=== PATIENT | female | born 1980 | race Caucasian/White ===

== ENCOUNTER → 2016-03-23 | Day surgery (SDC) | payer OTHER | LOC: RAD 13:31 | PROVIDERS: ATTEND Orthopaedic Surgery | PROC: BP0 Imaging, Non-Axial Upper Bones, Plain Radiography (ICD-10-PCS; principal; 2016-03-23) | DX: M25.511 Pain in right shoulder (principal) | CPT/HCPCS: 73222; 73040; 77002; A9576 ==

== ENCOUNTER 2016-09-12 15:12 | Emergency (ER) | payer OTHER ==
[2016-09-12 15:19] VITALS: BP 139/90
[2016-09-12] MEDS ORDERED: MAG HYDROX/AL HYDROX/SIMETH SUSP 30 ML UDCUP PO ONE (15:36)
[2016-09-12] MEDS ORDERED: DIPHENHYDRAMINE HCL 25 MG/10 ML UDC PO ONE (15:36)
[2016-09-12] MEDS ORDERED: LIDOCAINE 2% VISCOUS SOLN 20 ML UDCUP PO ONE (15:36)
--- NOTE | 2016-09-12 15:42 | ER Document Report ---
ED ENT - General Chief Complaint: Sore Throat Stated Complaint: SORE THROAT Time Seen by Provider: 09/12/16 15:29 Notes: 35 yo female c/o throat pain x 3 days. says pain started after eating fried shrimp. felt like something sharp got stuck in throat. cleared throat with water, but throat has been hurting ever since. hurts to swallow, hurts to talk. now has developed a productive cough with green sputum. no fever. TRAVEL OUTSIDE OF THE [place] IN LAST 30 DAYS: No - HPI Onset/Duration: Sudden Quality of pain: Sharp, Stabbing Location of pain: Throat Associated symptoms: Cough. denies: Fever, Stiff neck Similar symptoms previously: No Recently seen / treated by doctor: No - Related Data Allergies/Adverse Reactions: No Known Allergies Allergy (Unverified 09/12/16 15:16) Past Medical History - Social History Smoking Status: Never Smoker Frequency of alcohol use: None Drug Abuse: None Lives with: Family Family History: Reviewed & Not Pertinent - Medical History Medical History: Negative Renal/ Medical History: Denies: Hx Peritoneal Dialysis Past Surgical History: Reports: Hx Section - x1 - Immunizations Hx Diphtheria, Pertussis, Tetanus Vaccination: - unsure Review of Systems - Review of Systems Constitutional: No symptoms reported Cardiovascular: No symptoms reported Respiratory: No symptoms reported Gastrointestinal: No symptoms reported Genitourinary: No symptoms reported Female Genitourinary: No symptoms reported Musculoskeletal: No symptoms reported Skin: No symptoms reported Hematologic/Lymphatic: No symptoms reported Neurological/Psychological: No symptoms reported Physical Exam - Vital signs Vitals: Temp Pulse Resp BP Pulse Ox 98.6 F 94 16 139/90 H 99 09/12/16 15:17 09/12/16 15:17 09/12/16 15:17 09/12/16 15:17 09/12/16 15:17 Interpretation: Normal - General General appearance: Appears well, Alert - HEENT Head: Normocephalic, Atraumatic Eyes: Normal Conjunctiva: Normal Pupils: PERRL Tympanic membrane: Normal Mucous membranes: Moist Pharynx: Erythema. No: Tonsillar hypertrophy, Uvular edema, Potential airway comprom. Neck: Normal, Supple - Respiratory Respiratory status: No respiratory distress Chest status: Nontender Breath sounds: Normal Chest palpation: Normal - Cardiovascular Rhythm: Regular Heart sounds: Normal auscultation Murmur: No - Abdominal Inspection: Normal Distension: No distension Bowel sounds: Normal Tenderness: Nontender Organomegaly: No organomegaly - Back Back: Normal, Nontender - Extremities General upper extremity: Normal inspection, Nontender, Normal color, Normal ROM , Normal temperature General lower extremity: Normal inspection, Nontender, Normal color, Normal ROM , Normal temperature, Normal weight bearing. No: Amanuel's sign - Neurological Neuro grossly intact: Yes Cognition: Normal Orientation: AAOx4 [place] Coma Scale Eye Opening: Spontaneous [place] Coma Scale Verbal: Oriented [place] Coma Scale Motor: Obeys Commands [place] Coma Scale Total: 15 Speech: Normal Motor strength normal: LUE, RUE, LLE, RLE Sensory: Normal - Psychological Associated symptoms: Normal affect, Normal mood - Skin Skin Temperature: Warm Skin Moisture: Dry Skin Color: Normal Course - Re-evaluation Re-evalutation: 09/12/16 15:44 low suspicion for kev's, peritonsillar abscess. no airway compromise. 09/12/16 16:15 soft tissue neck normal. results reviewed with patient. pt is stable for discharge and follow up with primary care if symptoms persist - Vital Signs Vital signs: Temp Pulse Resp BP Pulse Ox 98.6 F 94 16 139/90 H 99 09/12/16 15:17 09/12/16 15:17 09/12/16 15:17 09/12/16 15:17 09/12/16 15:17 Discharge - Discharge Clinical Impression: Sore throat Instructions: Steroid Medication Additional Instructions: medications as prescribed salt water gargles for comfort follow up primary care if symptoms persist Prescriptions: Nystatin/Dexameth/Diphen [Magic Mouthwash (Omh Formula) Susp] 5 ml PO QID #120 ml Prednisone [Deltasone 20 mg Tablet] 2 tab PO BID #16 tablet
--- NOTE | 2016-09-12 16:08 | RADIOLOGY REPORT (SQ) ---
EXAM DESCRIPTION: CHEST PA/LAT COMPLETED DATE/TIME: 09/12/2016 3:56 pm REASON FOR STUDY: cough COMPARISON: 11/02/2010. EXAM PARAMETERS: NUMBER OF VIEWS: two views TECHNIQUE: Digital Frontal and Lateral radiographic views of the chest acquired. RADIATION DOSE: NA LIMITATIONS: none FINDINGS: LUNGS AND PLEURA: No opacities, masses or pneumothorax. No pleural effusion. MEDIASTINUM AND HILAR STRUCTURES: No masses or contour abnormalities. HEART AND VASCULAR STRUCTURES: Heart normal size. No evidence for failure. BONES: No acute findings. HARDWARE: None in the chest. OTHER: No other significant finding. IMPRESSION: NO SIGNIFICANT RADIOGRAPHIC FINDING IN THE CHEST. TECHNICAL DOCUMENTATION: JOB ID: [id number] [employer]- All Rights Reserved
--- NOTE | 2016-09-12 16:09 | RADIOLOGY REPORT (SQ) ---
EXAM DESCRIPTION: SOFT TISSUE NECK COMPLETED DATE/TIME: 09/12/2016 3:56 pm REASON FOR STUDY: cough COMPARISON: None. NUMBER OF VIEWS: Two views. TECHNIQUE: AP and lateral radiographic image of the soft tissues of the neck. LIMITATIONS: None. FINDINGS: EPIGLOTTIS: Normal. Contour normal. Aryepiglottic folds normal. PREVERTEBRAL SOFT TISSUES: Normal. No soft tissue swelling. SUBGLOTTIC AREA: Normal. No narrowing. RETROPHARYNGEAL SPACE: Normal. No soft tissue masses. BONY STRUCTURES: No significant findings. LUNG APICES: Normal. OTHER: No radiopaque foreign body. No other significant finding. IMPRESSION: NEGATIVE STUDY OF THE SOFT TISSUES OF THE NECK. TECHNICAL DOCUMENTATION: JOB ID: [id number] [employer]- All Rights Reserved
== END 2016-09-12 16:24 | disposition home or self-care (01) ==
LOC: ER 15:12
DX: J02.9 Acute pharyngitis, unspecified (principal); R05 Cough
CPT/HCPCS: 99283; 71020; 70360; J3490 ×2

== ENCOUNTER 2017-04-01 04:34 | Emergency (ER) | payer OTHER ==
[2017-04-01 04:44] VITALS: BP 130/83
[2017-04-01] MEDS ORDERED: FENTANYL CITRATE INJ/PF 100 MCG/2 ML AMPUL IV ONE (05:08)
[2017-04-01] MEDS ORDERED: ONDANSETRON HCL INJ/PF 4 MG/2 ML SDV IV ONE (05:08)
[2017-04-01] MEDS ORDERED: KETOROLAC TROMETHAMINE INJ/PF 30 MG/1 ML SDV IV ONE (05:08)
--- NOTE | 2017-04-01 05:11 | ER Document Report ---
ED Medical Screen (RME) - General Chief Complaint: Abdominal Pain Stated Complaint: ABDOMINAL PAIN Time Seen by Provider: 04/01/17 05:03 Notes: 36-year-old female, chief complaint of sudden onset of severe pain radiating from her right mid to lower abdomen around to her back. She states she is nauseated but she has not vomited. She denies vaginal bleeding, dysuria, vaginal discharge, fever. No history of kidney stones. Only past medical history reported is , ADHD, depression. TRAVEL OUTSIDE OF THE [place] IN LAST 30 DAYS: No - Related Data Allergies/Adverse Reactions: No Known Allergies Allergy (Unverified 09/12/16 15:16) Past Medical History - Social History Chew tobacco use (# tins/day): No Frequency of alcohol use: None Renal/ Medical History: Denies: Hx Peritoneal Dialysis Past Surgical History: Reports: Hx Section - x1 - Immunizations Hx Diphtheria, Pertussis, Tetanus Vaccination: - unsure Physical Exam - Vital signs Vitals: Temp Pulse Resp BP Pulse Ox 97.4 F 82 20 130/83 H 100 04/01/17 04:43 04/01/17 04:43 04/01/17 04:43 04/01/17 04:43 04/01/17 04:43 - General General appearance: Anxious In distress: Moderate - Patient holding her stomach, curled up in a ball, appears to be in obvious pain - Abdominal Tenderness: Tender - Tender in the mid to lower right abdomen generally, remaining abdomen benign Course - Vital Signs Vital signs: Temp Pulse Resp BP Pulse Ox 97.4 F 82 20 130/83 H 100 04/01/17 04:43 04/01/17 04:43 04/01/17 04:43 04/01/17 04:43 04/01/17 04:43
[2017-04-01 05:34] LABS: ABSOLUTE BASOPHILS # (AUTO) 0.2 10^3/uL (0.0-0.2); ABSOLUTE EOSINOPHILS # (AUTO) 0.1 10^3/uL (0.0-0.6); ABSOLUTE LYMPHOCYTES (AUTO) 2.4 10^3/uL (0.5-4.7); ABSOLUTE MONOCYTES (AUTO) 0.7 10^3/uL (0.1-1.4); ABSOLUTE NEUT (AUTO) 7.6 10^3/uL (1.7-8.2); BASOPHILS % (AUTO) 1.5 % (0-2); HEMATOCRIT 37.6 % (36.0-47.0); HEMOGLOBIN 13.1 g/dL (12.0-15.5); LYMPHOCYTES % (AUTO) 21.7 % (13-45); MEAN CORPUSCULAR HEMOGLOBIN 28.7 pg (27.0-33.4); MEAN CORPUSCULAR HGB CONC 34.7 g/dL (32.0-36.0); MEAN CORPUSCULAR VOLUME 83 fl (80-97); MONOCYTES % (AUTO) 6.1 % (3-13); PLATELET COUNT 490 10^3/uL (150-450); RED BLOOD COUNT 4.56 10^6/uL (3.72-5.28); RED CELL DISTRIBUTION WIDTH 13.3 % (11.5-14.0); SEGMENTED NEUTROPHILS % (AUTO) 69.7 % (42-78); TOTAL CELLS COUNTED % (AUTO) 100 %; WHITE BLOOD COUNT 10.9 10^3/uL (4.0-10.5)
[2017-04-01 06:09] LABS: ALANINE AMINOTRANSFERASE 26 U/L (9-52); ALBUMIN 4.1 g/dL (3.5-5.0); ALKALINE PHOSPHATASE 90 U/L (38-126); ANION GAP 11 (5-19); ASPARTATE AMINO TRANSFERASE 17 U/L (14-36); BILIRUBIN,DIRECT 0.3 mg/dL (0.0-0.4); BILIRUBIN,TOTAL 0.5 mg/dL (0.2-1.3); BLOOD UREA NITROGEN 14 mg/dL (7-20); CALCIUM 10.2 mg/dL (8.4-10.2); CARBON DIOXIDE 21 mmol/L (22-30); CHLORIDE 107 mmol/L (98-107); GLUCOSE 116 mg/dL (75-110); SODIUM 139.1 mmol/L (137-145)
--- NOTE | 2017-04-01 06:25 | ER Document Report ---
ED General - General Chief Complaint: Abdominal Pain Stated Complaint: ABDOMINAL PAIN Time Seen by Provider: 04/01/17 05:03 Mode of Arrival: Ambulatory Information source: Patient Notes: 36 yr old female presents with complaints of bilateral lower abd pain that started suddenly last night . Patient denies any fevers or chills admits nausea without any vomiting. Denies any vaginal bleeding discharge TRAVEL OUTSIDE OF THE [place] IN LAST 30 DAYS: No - HPI Onset: Just prior to arrival Onset/Duration: Sudden Quality of pain: Cramping Severity: Mild Pain Level: 1 Associated symptoms: Nausea Exacerbated by: Denies Relieved by: Denies Similar symptoms previously: No Recently seen / treated by doctor: No - Related Data Allergies/Adverse Reactions: No Known Allergies Allergy (Unverified 09/12/16 15:16) Past Medical History - Social History Smoking Status: Never Smoker Cigarette use (# per day): No Chew tobacco use (# tins/day): No Smoking Education Provided: No Frequency of alcohol use: None Family History: Reviewed & Not Pertinent Patient has suicidal ideation: No Patient has homicidal ideation: No Renal/ Medical History: Denies: Hx Peritoneal Dialysis Past Surgical History: Reports: Hx Section - x1, Hx Orthopedic Surgery - Immunizations Hx Diphtheria, Pertussis, Tetanus Vaccination: - unsure Review of Systems - Review of Systems Notes: REVIEW OF SYSTEMS: CONSTITUTIONAL : Denies fever, chills, or sweats. Denies recent illness. EENT: Denies eye, ear, throat, or mouth pain or symptoms. Denies nasal or sinus congestion or discharge. Denies throat, tongue, or mouth swelling or difficulty swallowing. CARDIOVASCULAR: Denies chest pain. Denies palpitations or racing or irregular heart beat. Denies ankle edema. RESPIRATORY: Denies cough, cold, or chest congestion. Denies shortness of breath, difficulty breathing, or wheezing. GASTROINTESTINAL: Admits to abdominal pain GENITOURINARY: Denies difficulty urinating, painful urination, burning, frequency, blood in urine, or discharge. FEMALE GENITOURINARY: Denies vaginal bleeding, heavy or abnormal periods, irregular periods. Denies vaginal discharge or odor. MUSCULOSKELETAL: Denies back or neck pain or stiffness. Denies joint pain or swelling. SKIN: Denies rash, lesions or sores. HEMATOLOGIC : Denies easy bruising or bleeding. LYMPHATIC: Denies swollen, enlarged glands. NEUROLOGICAL: Denies confusion or altered mental status. Denies passing out or loss of consciousness. Denies dizziness or lightheadedness. Denies headache. Denies weakness or paralysis or loss of use of either side. Denies problems with gait or speech. Denies sensory loss, numbness, or tingling. Denies seizures. PSYCHIATRIC: Denies anxiety or stress. Denies depression, suicidal ideation, or homicidal ideation. ALL OTHER SYSTEMS REVIEWED AND NEGATIVE. PHYSICAL EXAMINATION: GENERAL: Well-appearing, well-nourished and in no acute distress. HEAD: Atraumatic, normocephalic. EYES: Pupils equal round and reactive to light, extraocular movements intact, conjunctiva are normal. ENT: Nares patent, oropharynx clear without exudates. Moist mucous membranes. NECK: Normal range of motion, supple without lymphadenopathy LUNGS: Breath sounds clear to auscultation bilaterally and equal. No wheezes rales or rhonchi. HEART: Regular rate and rhythm without murmurs ABDOMEN: Soft, nontender, nondistended abdomen. No guarding, no rebound. No masses appreciated. Female : deferred Musculoskeletal: Normal range of motion, no pitting or edema. No cyanosis. NEUROLOGICAL: Cranial nerves grossly intact. Normal speech, normal gait. Normal sensory, motor exams PSYCH: Normal mood, normal affect. SKIN: Warm, Dry, normal turgor, no rashes or lesions noted. Dictation was performed using [employer] voice recognition software Physical Exam - Vital signs Vitals: Temp Pulse Resp BP Pulse Ox 97.4 F 82 20 130/83 H 100 04/01/17 04:43 04/01/17 04:43 04/01/17 04:43 04/01/17 04:43 04/01/17 04:43 Course - Re-evaluation Re-evalutation: 04/01/17 07:20 Patient's examination was quite benign, she notes her pain is improved significantly, she is in no distress at this time, I did evaluate her with a CT which noted no acute abnormality either. I believe this may be more intestinal as a cramping seems to move around Overall I believe she is stable for discharge as she is in no distress looks well is afebrile After performing a Medical Screening Examination, I estimate there is LOW risk for ACUTE APPENDICITIS, BOWEL OBSTRUCTION, ACUTE CHOLECYSTITIS, PERFORATED DIVERTICULITIS, INCARCERATED HERNIA, PANCREATITIS, PELVIC INFLAMMATORY DISEASE, PERFORATED ULCER, ECTOPIC , or TUBO-OVARIAN ABSCESS, thus I consider the discharge disposition reasonable. Also, there is no evidence or peritonitis , sepsis, or toxicity. I have reevaluated this patient multiple times and no significant life threatening changes are noted. The patient and I have discussed the diagnosis and risks, and we agree with discharging home with close follow-up with the understanding that symptoms and presentations can change. We also discussed returning to the Emergency Department immediately if new or worsening symptoms occur. We have discussed the symptoms which are most concerning (e.g., bloody stool, fever, changing or worsening pain, vomiting) that necessitate immediate return. - Vital Signs Vital signs: Temp Pulse Resp BP Pulse Ox 97.4 F 82 20 130/83 H 100 04/01/17 04:43 04/01/17 04:43 04/01/17 04:43 04/01/17 04:43 04/01/17 04:43 - Laboratory Result Diagrams: 04/01/17 05:25 04/01/17 05:25 Laboratory results interpreted by me: 04/01/17 04/01/17 04/01/17 05:25 05:25 06:14 WBC 10.9 H Plt Count 490 H Carbon Dioxide 21 L Glucose 116 H Urine Ketones TRACE H Ur Leukocyte Esterase SMALL H - Diagnostic Test Radiology reviewed: Image reviewed, Reports reviewed - No acute abnormality Discharge - Discharge Clinical Impression: Abdominal cramping Condition: Stable Disposition: HOME, SELF-CARE Instructions: Abdominal Pain ([facility]), Observation for Appendicitis ([facility]) Additional Instructions: Follow up with your physician tomorrow for further care or return to the ED IMMEDIATELY if symptoms worsen or new concerns occur. If you cannot afford to follow up with your primary care physician a list of low cost clinics have been provided at the end of your discharge papers as well. Prescriptions: Dicyclomine HCl [Bentyl 20 mg Tablet] 20 mg PO QID #40 tablet Hydrocodone/Acetaminophen [Kennan 5-325 mg Tablet] 1 tab PO Q6 #10 tablet Ondansetron HCl [Zofran 4 mg Tablet] 1 - 2 tab PO Q4H PRN #10 tablet PRN Reason: Referrals: MAYNOR HO MD [ACTIVE STAFF] - Follow up tomorrow
[2017-04-01 06:34] LABS: APPEARANCE,URINE SLIGHTLY-CLOUDY; BILIRUBIN,URINE NEGATIVE (NEGATIVE); COLOR,URINE YELLOW; GLUCOSE, URINE NEGATIVE (NEGATIVE); KETONES,URINE TRACE mg/dL (NEGATIVE); LEUKOCYTE ESTERASE,URINE SMALL (NEGATIVE); NITRITE,URINE NEGATIVE (NEGATIVE); PROTEIN,URINE NEGATIVE (NEGATIVE); URINE SPECIFIC GRAVITY 1.028; UROBILINOGEN,URINE NEGATIVE mg/dL (<2.0)
--- NOTE | 2017-04-01 07:12 | RADIOLOGY REPORT (SQ) ---
EXAM DESCRIPTION: CT ABDOMEN AND PELVIS WITHOUT CONTRAST CLINICAL HISTORY: right abd pain, right flank pain, nausea COMPARISON: None Available. TECHNIQUE: CT of the abdomen and pelvis without IV contrast. FINDINGS: Abdomen: The liver has normal size and density. No calcified gallstones. The spleen, pancreas, and adrenal glands are unremarkable. The kidneys have normal size and contour without evidence of hydronephrosis. No obstructing ureteral calculi. The aorta and IVC have normal caliber and position. No free intraperitoneal air. The stomach and duodenum have normal course. Pelvis: Uterus is not enlarged. Urinary bladder is unremarkable. No free pelvic fluid or lymphadenopathy. No dilated loops of large or small bowel. The appendix is not definitely visualized however no right lower quadrant inflammatory change. The visualized lung bases are clear. No destructive bone lesions identified. DLP: 698.22 mGy-cm IMPRESSION: 1. No acute inflammatory or obstructive abnormality identified. This exam was performed according to our departmental dose-optimization program, which includes automated exposure control, adjustment of the mA and/or kV according to patient size and/or use of iterative reconstruction technique.
[2017-04-01] MEDS ORDERED: DICYCLOMINE HCL INJ 20 MG/2 ML AMPULE IM ONE (07:27)
== END 2017-04-01 08:00 | disposition home or self-care (01) ==
LOC: ER 04:34
DX: R10.30 Lower abdominal pain, unspecified (principal)
CPT/HCPCS: 99284; 96372; 96374; 96375; 36415; 84703; 85025; 80053; 81001; 76380; J0500; J3010; J1885; J2405

== ENCOUNTER 2017-05-22 04:38 | Observation (INO) | payer OTHER ==
[2017-05-22] MEDS ORDERED: PROMETHAZINE HCL 25 MG TABLET PO ONE (05:14)
--- NOTE | 2017-05-22 05:15 | ER Document Report ---
ED Medical Screen (RME) - General Chief Complaint: Abdominal Pain Stated Complaint: ABDOMINAL PAIN Notes: 36-year-old female, chief complaint of abdominal pain and flank pain, she states it woke her out of sleep tonight. She states pain is on both sides of her abdomen, upper and lower. She states she vomited once. She took Zofran, Menno, ibuprofen. She states she vomited after taking Zofran. She denies fever , vaginal bleeding or discharge, she states she is not sexually active, only surgery is . Past medical history of PTSD and TBI. TRAVEL OUTSIDE OF THE [place] IN LAST 30 DAYS: No - Related Data Allergies/Adverse Reactions: No Known Allergies Allergy (Unverified 09/12/16 15:16) Past Medical History - Social History Chew tobacco use (# tins/day): No Frequency of alcohol use: None Drug Abuse: None Renal/ Medical History: Denies: Hx Peritoneal Dialysis Past Surgical History: Reports: Hx Section - x1, Hx Orthopedic Surgery - Immunizations Hx Diphtheria, Pertussis, Tetanus Vaccination: - unsure Physical Exam - Vital signs Vitals: Temp Pulse Resp BP Pulse Ox 97.5 F 61 20 126/80 H 100 05/22/17 04:45 05/22/17 04:45 05/22/17 04:45 05/22/17 04:45 05/22/17 04:45 - Abdominal Tenderness: Tender - No focal tenderness, patient complains of pain regardless of where I palpate, no obvious guarding, no rigidity, no rebound tenderness Course - Vital Signs Vital signs: Temp Pulse Resp BP Pulse Ox 97.5 F 61 20 126/80 H 100 05/22/17 04:45 05/22/17 04:45 05/22/17 04:45 05/22/17 04:45 05/22/17 04:45 Doctor's Discharge - Discharge Referrals: HERNÁN CAIN MD [Primary Care Provider] - Follow up as needed
[2017-05-22] MEDS ORDERED: NORMAL SALINE 1000 ML 1,000 ML IV ONE ×2 (05:53→13:50)
[2017-05-22] MEDS ORDERED: KETOROLAC TROMETHAMINE INJ/PF 30 MG/1 ML SDV IV ONE (05:53)
[2017-05-22 05:57] LABS: ABSOLUTE BASOPHILS # (AUTO) 0.1 10^3/uL (0.0-0.2); ABSOLUTE LYMPHOCYTES (AUTO) 1.4 10^3/uL (0.5-4.7); ABSOLUTE MONOCYTES (AUTO) 0.4 10^3/uL (0.1-1.4); ABSOLUTE NEUT (AUTO) 10.9 10^3/uL (1.7-8.2); BASOPHILS % (AUTO) 0.7 % (0-2); EOSINOPHILS % (AUTO) 0.2 % (0-6); HEMATOCRIT 39.9 % (36.0-47.0); HEMOGLOBIN 13.5 g/dL (12.0-15.5); LYMPHOCYTES % (AUTO) 11.3 % (13-45); MEAN CORPUSCULAR HGB CONC 33.8 g/dL (32.0-36.0); MEAN CORPUSCULAR VOLUME 83 fl (80-97); MONOCYTES % (AUTO) 2.9 % (3-13); PLATELET COUNT 451 10^3/uL (150-450); RED BLOOD COUNT 4.81 10^6/uL (3.72-5.28); SEGMENTED NEUTROPHILS % (AUTO) 84.9 % (42-78); TOTAL CELLS COUNTED % (AUTO) 100 %; WHITE BLOOD COUNT 12.9 10^3/uL (4.0-10.5)
--- NOTE | 2017-05-22 05:59 | ER Document Report ---
ED General - General Chief Complaint: Abdominal Pain Stated Complaint: ABDOMINAL PAIN Time Seen by Provider: 05/22/17 05:46 Notes: Patient presents with abdominal pain lower bilateral onset in her back which radiated around to the front for the past 12 hours associated with nausea and vomiting. She has a history of this once before 2 months ago was evaluated in the ED with no clear diagnosis and was discharged with dicyclomine hydrocodone and Zofran which she has been taking again over the past 12 hours secondary return of pain. No fevers chills no vaginal discharge not sexually active last menstrual period, which is regular, was a month ago. She is cared for primarily at the NH. No history of abdominal surgeries. TRAVEL OUTSIDE OF THE [place] IN LAST 30 DAYS: No - Related Data Allergies/Adverse Reactions: No Known Allergies Allergy (Unverified 09/12/16 15:16) Past Medical History - Social History Smoking Status: Never Smoker Chew tobacco use (# tins/day): No Frequency of alcohol use: None Drug Abuse: None Family History: Reviewed & Not Pertinent Patient has suicidal ideation: No Patient has homicidal ideation: No Renal/ Medical History: Denies: Hx Peritoneal Dialysis Past Surgical History: Reports: Hx Section - x1, Hx Orthopedic Surgery - Immunizations Hx Diphtheria, Pertussis, Tetanus Vaccination: - unsure Physical Exam - Vital signs Vitals: Temp Pulse Resp BP Pulse Ox 97.5 F 61 20 126/80 H 100 05/22/17 04:45 05/22/17 04:45 05/22/17 04:45 05/22/17 04:45 05/22/17 04:45 Course - Re-evaluation Re-evalutation: 05/22/17 06:29 Patient presents with repeat episode of nonspecific abdominal pain radiating around her back. She was evaluated 2 months ago for similar pain in her CT was negative as well as the rest of her workup. Today she has tenderness throughout the lower abdomen. She is afebrile. I think that this is probably some some form of functional abdominal pain, she has no risk factors for obstruction, no discharge to suggest pelvic inflammatory disease, and the pain is not localized to either lower quadrant making me less suspicious for appendicitis or diverticulitis. She appears in significant pain, however so she will be treated with non-narcotic medications, antiemetics, IV fluids and I will redo her CT scan today. Lack of right upper quadrant pain or tenderness makes her low risk for gallbladder process so I do not think she needs an ultrasound. She is quite repeatedly asking for pain medication. She was given Toradol. 05/22/17 09:13 He shows possible distal ileal obstruction. Lots of stool. Ovarian cyst noted. This is probably a result of constipation but given the radiology read I will consult surgery and I spoke with Dr. Toney who will admit the patient. 05/22/17 13:50 Ultrasound shows gallbladder sludge and stones. Patient has right upper quadrant tenderness which persists. Spoke with Dr. Garduno who will admit for possible early cholecystitis. - Vital Signs Vital signs: Temp Pulse Resp BP Pulse Ox 97.5 F 61 20 126/80 H 100 05/22/17 04:45 05/22/17 04:45 05/22/17 04:45 05/22/17 04:45 05/22/17 04:45 - Laboratory Result Diagrams: 05/22/17 05:50 05/22/17 05:50 Laboratory results interpreted by me: 05/22/17 05/22/17 05/22/17 05:50 05:50 07:28 WBC 12.9 H Plt Count 451 H Seg Neutrophils % 84.9 H Lymphocytes % 11.3 L Monocytes % 2.9 L Absolute Neutrophils 10.9 H Glucose 133 H Urine Ketones 80 H - Diagnostic Test Radiology reviewed: Image reviewed, Reports reviewed Discharge - Discharge Clinical Impression: Cholelithiasis Qualifiers: Cholelithiasis location: gallbladder Cholecystitis presence: without cholecystitis Biliary obstruction: without biliary obstruction Qualified Code(s) : K80.20 - Calculus of gallbladder without cholecystitis without obstruction Condition: Fair Disposition: ADMITTED INPATIENT Admitting Provider: Surgicalist Unit Admitted: Surgical Floor Referrals: HERNÁN CAIN MD [Primary Care Provider] - Follow up as needed
[2017-05-22 06:09] LABS: ALANINE AMINOTRANSFERASE 33 U/L (9-52); ALBUMIN 4.7 g/dL (3.5-5.0); ALKALINE PHOSPHATASE 94 U/L (38-126); ANION GAP 13 (5-19); ASPARTATE AMINO TRANSFERASE 19 U/L (14-36); BILIRUBIN,DIRECT 0.1 mg/dL (0.0-0.4); BILIRUBIN,TOTAL 0.4 mg/dL (0.2-1.3); BLOOD UREA NITROGEN 16 mg/dL (7-20); CARBON DIOXIDE 25 mmol/L (22-30); CHLORIDE 103 mmol/L (98-107); GLUCOSE 133 mg/dL (75-110); LIPASE 40.2 U/L (23-300); POTASSIUM 4.4 mmol/L (3.6-5.0); SODIUM 141.1 mmol/L (137-145); TOTAL PROTEIN 7.3 g/dL (6.3-8.2)
[2017-05-22 07:59] LABS: APPEARANCE,URINE SLIGHTLY-CLOUDY; BILIRUBIN,URINE NEGATIVE (NEGATIVE); COLOR,URINE YELLOW; GLUCOSE, URINE NEGATIVE (NEGATIVE); KETONES,URINE 80 mg/dL (NEGATIVE); LEUKOCYTE ESTERASE,URINE NEGATIVE (NEGATIVE); NITRITE,URINE NEGATIVE (NEGATIVE); PROTEIN,URINE NEGATIVE (NEGATIVE); URINE SPECIFIC GRAVITY 1.024; UROBILINOGEN,URINE NEGATIVE mg/dL (<2.0)
--- NOTE | 2017-05-22 08:43 | RADIOLOGY REPORT (SQ) ---
EXAM DESCRIPTION: CT ABD/PELVIS WITH IV ONLY COMPLETED DATE/TIME: 05/22/2017 8:13 am REASON FOR STUDY: BLQ pain, mild leukocytosis (*appy, divertic) COMPARISON: None. TECHNIQUE: CT scan of the abdomen and pelvis performed using helical scanning technique with dynamic intravenous contrast injection. No oral contrast. Images reviewed with lung, soft tissue, and bone windows. Reconstructed coronal and sagittal MPR images reviewed. Delayed images for evaluation of the urinary system also acquired. All images stored on PACS. All CT scanners at this facility use dose modulation, iterative reconstruction, and/or weight based d osing when appropriate to reduce radiation dose to as low as reasonably achievable (ALARA). [facility]: Dose Right [facility]: CareDose [facility]: Dose Right [facility]: Teradose 4D [facility]: Cellectar CONTRAST TYPE AND DOSE: contrast/concentration: Isovue 370.00 mg/ml; Total Contrast Delivered: 90.0 ml; Total Saline Delivered: 70.1 ml RENAL FUNCTION: Creatinine: 0.7. RADIATION DOSE: CT Rad equipment meets quality standard of care and radiation dose reduction techniq ues were employed. CTDIvol: 12.1 - 16.2 mGy. DLP: 1544 mGy-cm.. LIMITATIONS: None. FINDINGS: LOWER CHEST: Dependent atelectasis in lung bases. LIVER: No abnormality seen. . SPLEEN: No abnormality seen. PANCREAS: No abnormality seen. GALLBLADDER: Distended gallbladder. No abnormality seen ADRENAL GLANDS: No abnormality seen. RIGHT KIDNEY AND URETER: There is a small 0.8 cm cortical cyst upper pole right kidney. LEFT KIDNEY AND URETER: No abnormality seen. AORTA AND VESSELS: No abnormality seen. RETROPERITONEUM: No abnormality seen. BOWEL AND PERITONEAL CAVITY: There is evidence of a moderate amount of fecal material noted primarily within the cecum and right colon. There is fecal oz a shunt of the terminal ileum which is prominen t. The possibility of slow metallic must be considered. No definite point of obstruction identified . APPENDIX: Not visualized. PELVIS: Uterus: No abnormality seen. Urinary bladder: No abnormality seen. Adnexal regions: There is a prominent right ovarian cyst measuring 1.6 x 1.5 x 2.3 cm. There is a small amount of free f luid noted within the pelvis. ABDOMINAL WALL: No masses. No hernias. BONES: No significant or acute findings. OTHER: Small nonenlarged mesenteric nodes right lower quadrant. Small para-aortic nodes. IMPRESSION: 1. There is evidence of mild dilatation of distal small bowel or terminal ileum without obstruction. The findings could represent ileus or decreased motility. 2. There is a follicular c ysts of the right ovary measuring 1.6 x 1.5 x2.3 cm. Small amount of free fluid within pelvis. TECHNICAL DOCUMENTATION: JOB ID: [id number]-69 Quality ID # [id number]: Final reports with documentation of one or more dose reduction techniques (e.g., Au tomated exposure control, adjustment of the mA and/or kV according to patient size, use of iterative reconstruction technique) 2010 [employer]- All Rights Reserved Reading location - IP/workstation name: [email or web address]
[2017-05-22] MEDS ORDERED: MORPHINE SULFATE 10 MG/ML INJ IV ONE ×2 (11:10→13:50)
[2017-05-22] MEDS ORDERED: ONDANSETRON HCL INJ/PF 4 MG/2 ML SDV IV ONE ×2 (11:13→13:50)
[2017-05-22] MEDS ORDERED: ONDANSETRON HCL INJ/PF 4 MG/2 ML SDV ONE (11:21)
--- NOTE | 2017-05-22 13:37 | RADIOLOGY REPORT (SQ) ---
EXAM DESCRIPTION: U/S ABDOMEN LIMITED W/O DOP COMPLETED DATE/TIME: 05/22/2017 1:25 pm REASON FOR STUDY: abd pain COMPARISON: None. TECHNIQUE: Dynamic and static grayscale images acquired of the abdomen and recorded on PACS. Additio nal selected color Doppler and spectral images recorded. LIMITATIONS: None. FINDINGS: PANCREAS: No masses. Visualized pancreatic duct normal caliber. LIVER: 16 cm. Normal echotexture. LIVER VASCULATURE: Normal directional flow of the main portal vein and hepatic veins. GALLBLADDER: Small stones are present. There is no wall thickening. ULTRASOUND-DETECTED GREENBERG'S SIGN: Negative. INTRAHEPATIC DUCTS AND COMMON DUCT: CBD and intrahepatic ducts normal caliber. No filling defects. INFERIOR VENA CAVA: Normal flow. AORTA: No aneurysm. RIGHT KIDNEY: Normal size, 10.2 cm. Normal echogenicity. No solid or suspicious masses. 1 cm cyst. No hydronephrosis. No calcifications. PERITONEAL AND RIGHT PLEURAL SPACE: No ascites or effusions. OTHER: No other significant findings. IMPRESSION: There are some small gallstones with no evidence of cholecystitis. There is no ductal d ilatation. TECHNICAL DOCUMENTATION: JOB ID: [id number] PHRQL- All Rights Reserved Reading location - IP/workstation name: [email or web address]
[2017-05-22] MEDS ORDERED: FENTANYL CITRATE INJ/PF 100 MCG/2 ML AMPUL IV PRN ×4 (14:41→17:47)
[2017-05-22] MEDS ORDERED: ONDANSETRON HCL INJ/PF 4 MG/2 ML SDV IV PRN ×2 (14:42→18:25)
[2017-05-22] MEDS: PIPERACILLIN/TAZOBACTAM 3.375 GM VIAL IV SCH (15:05)
[2017-05-22] MEDS: NORMAL SALINE 1000 ML 1,000 ML IV PRN ×2 (15:06→20:06)
[2017-05-22] MEDS ORDERED: FENTANYL CITRATE INJ/PF 100 MCG/2 ML AMPUL ONE (16:27)
[2017-05-22] MEDS ORDERED: ACETAMINOPHEN 100 ML IV ONE (16:28)
[2017-05-22] MEDS ORDERED: MIDAZOLAM 2 MG/2 ML INJ ONE (16:28)
[2017-05-22] MEDS ORDERED: PROPOFOL INJ 200 MG/20 ML VIAL IV ONE (16:28)
[2017-05-22] MEDS ORDERED: BUPIVACAINE HCL 0.5%-EPI 1:200000 INJ/PF 30 ML VIAL ONE (17:01)
[2017-05-22] MEDS ORDERED: DIPHENHYDRAMINE HCL 50 MG/ML VIAL IV PRN (17:47)
[2017-05-22] MEDS ORDERED: OXYCODONE-ACETAMINOPHEN 5-325 MG TABLET PO PRN ×2 (17:47)
[2017-05-22] MEDS ORDERED: PROMETHAZINE HCL INJ 25 MG/1 ML VIAL IV PRN ×2 (17:47)
[2017-05-22] MEDS ORDERED: MEPERIDINE HCL/PF INJ 25 MG/1 ML DISP.SYRIN IV PRN (17:47)
--- NOTE | 2017-05-22 19:09 | OPERATIVE REPORT E ---
Operative Report NAME: NILA VILLAGOMEZ : 1980 AGE: 36Y DATE OF SURGERY: 05/22/2017 ROOM: ED17 PREOPERATIVE DIAGNOSIS: ACUTE CALCULOUS CHOLECYSTITIS. POSTOPERATIVE DIAGNOSIS: ACUTE CALCULOUS CHOLECYSTITIS. OPERATION: Laparoscopic cholecystectomy. SURGEON: HERNAN WALKER M.D. ANESTHESIA: General. INDICATION: This is a 36-year-old female complaining of severe back pain radiating to the anterior abdomen, epigastric and right upper quadrant after a fatty meal last night. She went to the emergency room, where a CAT scan revealed dilated gallbladder. A subsequent ultrasound showed gallstones and evidence of acute cholecystitis. She was then taken to the OR for laparoscopic cholecystectomy. PROCEDURE: After adequate general anesthesia, patient was placed in supine position and abdomen prepped and draped in the usual sterile fashion. The appropriate timeout was called. Next, an infraumbilical incision made and the fascia identified and divided between the Aki clamps. A Gianni trocar inserted through the fascia into the abdominal cavity, and CO2 insufflated through the trocar to a pressure of 15 mmHg. Three other trocars, a 12-mm in the subxiphoid and two 5-mm in the right upper quadrant, were then placed under direct vision. Next, the gallbladder was noted to be markedly distended, thickened and edematous. It needed to be evacuated of at least 60 mL of pus through a long needle. The gallbladder was subsequently easily grasped this time and pulled over the liver. The infundibulum also grasped with a grasper, and the cystic duct dissected, as well as the cystic artery. After angle of safety noted, the cystic artery was then clipped, as well as the cystic duct. Cystic duct was then divided with the hemoclips and the cystic artery divided just above the clip, towards the gallbladder, with the use of Harmonic melina. The gallbladder was then taken off the liver bed with the use of Harmonic melina. The gallbladder was completely removed from the liver bed and placed in an Endo bag and pulled out through the umbilical port. Gallbladder palpated and noted to have large stones. The trocar was then put back and liver bed inspected. No evidence of bleeding noted. It was irrigated. No other obvious abnormality noted in the abdominal cavity. The trocars were removed and CO2 had to come out from the trocar sites. The fascial defect was then closed with 0 Vicryl [id number] suture and all the skin incisions were subcuticular 4-0 Vicryl undyed. Sterile dressings placed over the operative site. Patient tolerated procedure well and brought to recovery in satisfactory condition. Needle, instrument and sponge counts were all correct. Estimated blood loss about 10 mL. Patient tolerated procedure well. DICTATING PHYSICIAN: HERNAN WALKER M.D. [id number] PHY#: [id number] ID: [id number] JOB#: [id number] ACCT: [id number] cc:HERNAN WALKER M.D. >
[2017-05-22] MEDS: OXYCODONE-ACETAMINOPHEN 5-325 MG TABLET PO PRN (20:06)
[2017-05-22] MEDS: MORPHINE SULFATE 10 MG/ML INJ IV PRN (21:03)
[2017-05-22] MEDS: CEFAZOLIN 1 GM/D5W RTU 1 GM/50 ML RTUPB IV SCH (21:03)
[2017-05-22] MEDS ORDERED: PIPERACILLIN/TAZOBACTAM 3.375 GM VIAL IV ONE (23:49)
[2017-05-23] MEDS: PIPERACILLIN/TAZOBACTAM 3.375 GM VIAL IV SCH ×2 (00:56→05:46)
[2017-05-23] MEDS: MORPHINE SULFATE 10 MG/ML INJ IV PRN (00:56)
[2017-05-23] MEDS: CEFAZOLIN 1 GM/D5W RTU 1 GM/50 ML RTUPB IV SCH (05:05)
[2017-05-23] MEDS: OXYCODONE-ACETAMINOPHEN 5-325 MG TABLET PO PRN ×2 (05:48→13:04)
[2017-05-23] MEDS ORDERED: PIPERACILLIN SODIUM/TAZOBACTAM 3.375 GM in NORMAL SALINE 100 ML IV SCH (12:00)
[2017-05-23 13:47] VITALS: BP 104/60
[2017-05-23] MEDS ORDERED: NEOSTIGMINE METHYLSULFATE 10 MG/10 ML VIAL ONE (14:33)
[2017-05-23] MEDS ORDERED: ROCURONIUM BROMIDE INJ 50 MG/5 ML VIAL IV ONE (14:33)
[2017-05-23] MEDS ORDERED: SUCCINYLCHOLINE CHLORIDE INJ 200 MG/10 ML VIAL ONE (14:33)
[2017-05-23] MEDS ORDERED: DEXAMETHASONE SOD PHOSPHATE INJ 4 MG/1 ML VIAL ONE (14:33)
[2017-05-23] MEDS ORDERED: GLYCOPYRROLATE INJ 0.4 MG/2 ML VIAL ONE (14:33)
[2017-05-23] MEDS ORDERED: ONDANSETRON HCL INJ/PF 4 MG/2 ML SDV ONE (14:33)
--- NOTE | 2017-05-28 20:19 | DISCHARGE SUMMARY E ---
Discharge Summary NAME: NILA VILLAGOMEZ : 1980 AGE: 36Y ADMITTED: 05/22/2017 DISCHARGED: 05/23/2017 FINAL DIAGNOSIS: Acute on chronic calculus cholecystitis. PROCEDURE: Laparoscopic cholecystectomy. HOSPITAL COURSE: This is a 36-year-old female with severe right upper quadrant pains. Ultrasound revealed gallstones. The patient underwent laparoscopic cholecystectomy on the day of admission on 05/22/17. Postoperatively the patient did well and discharged improved on 05/23/17 with a final diagnosis of acute on chronic calculus cholecystitis. DISCHARGE INSTRUCTIONS: The patient advised to follow up in the clinic in 2 weeks. Patient given a prescription for Percocet p.r.n. for pain. DICTATING PHYSICIAN: HERNAN WALKER M.D. [id number] PHY#: [id number] ID: [id number] JOB#: [id number] ACCT: [id number] cc:HERNAN WALKER M.D. >
== END 2017-05-23 15:20 | disposition home or self-care (01) ==
LOC: ER 04:38 → EH 14:04 → INTOOBSV 14:04 → 5 19:10
PROVIDERS: ADMIT Surgery; ATTEND Surgery
PROC: 0FT44ZZ Resection of Gallbladder, Percutaneous Endoscopic Approach (ICD-10-PCS; principal; 2017-05-22 17:00)
DX: K80.12 Calculus of gallbladder with acute and chronic cholecystitis without obstruction (principal)
CPT/HCPCS: 99285; 96361; 96374; 96375; 36415; 83690; 84703; 85025; 81025; 80053; 81001; 88304 ×2; 76705; 74177; 47562; G0378 ×3; J2250; J3490 ×2; J0690 ×2; J1100; J3010; J1885; J2270 ×2; J0330; J2405 ×2; J7030; J2704; J2543 ×2; J0131; 790